=== PATIENT | male | born 1980 | race African-American/Black ===

== ENCOUNTER 2024-05-13 21:51 | Emergency (ER) | payer OTHER, SELFPAY ==
[2024-05-13 23:37] LABS: Influenza A by NAA Not Detected (NotDetected); Influenza B by NAA Not Detected (NotDetected); SARS-CoV-2 NAA Rapid Test Not Detected (NotDetected)
[2024-05-14] MEDS ORDERED: Metoclopramide 10 MG/10 ML UDCUP ONE (00:39)
[2024-05-14] MEDS ORDERED: Dexamethasone 10 MG/ML VIAL ONE (00:39)
== END 2024-05-14 00:47 | disposition home or self-care (01) ==
LOC: CSHERS 21:51
DX: R51.9 Headache, unspecified (principal); I10 Essential (primary) hypertension
CPT/HCPCS: 99284; J1100